=== PATIENT | male | born 1965 | race Caucasian/White ===

== ENCOUNTER → 2018-02-22 | Outpatient (REF) | payer MEDICARE, MEDICAID ==
[~2018-02-22] MED LIST: ALBU83IN; COMBIVENT; FLAG500T; LEVA500T
== END ==
LOC: M LAB REF 16:11
PROVIDERS: ATTEND Ophthalmology
DX: L91.8 Other hypertrophic disorders of the skin (principal)

== ENCOUNTER → 2018-04-13 | Outpatient (CLI) | payer MEDICARE, MEDICAID ==
--- NOTE | 2018-04-13 13:31 | REP ---
HIDA SCAN WITH GALLBLADDER EJECTION FRACTION: Following the intravenous administration of 6.6 millicuries of technetium 99M mebrofenin, multiple images of the right upper quadrant are performed every 5 minutes for a period of 1 hour. Gallbladder is visualized at 10 minutes postinjection and there is biliary to bowel transit at 15 minutes post injection with no scintigraphic evidence of cholecystitis. At the 1 hour emily 8 ounces of Ensure Enlive is ingested and further imaging was performed for 1 hour. Gallbladder activity is measured and gallbladder ejection fraction is calculated to be 84% which is normal. IMPRESSION: Normal gallbladder ejection fraction Electronically Signed by Dany Ulrich MD 04/13/2018 04:02 P
== END ==
LOC: M RAD 08:28
DX: K81.9 Cholecystitis, unspecified (principal)
CPT/HCPCS: 78227; A9537; J2805